=== PATIENT | male | born 1965 | race Hispanic/Latino ===

== ENCOUNTER 2023-03-09 15:30 | Inpatient (IN) | payer OTHER ==
[~2023-03-09] VITALS: Ht 167.6 cm; Wt 69.4 kg
[2023-03-09 16:56] LABS: APPEARANCE,URINE CLEAR (CLEAR); BILIRUBIN,URINE NEGATIVE (NEGATIVE); COLOR,URINE YELLOW (YELLOW); GLUCOSE, URINE (UA) NEGATIVE (NEGATIVE); KETONES,URINE NEGATIVE (NEGATIVE); LEUKOCYTE ESTERASE ,URINE NEGATIVE Leu/uL (NEGATIVE); NITRATE,URINE NEGATIVE (NEGATIVE); OCCULT BLOOD,URINE NEGATIVE (NEGATIVE); PH,URINE 5.5 (5.0-8.0); PROTEIN,URINE 30 mg/dL (NEGATIVE); UROBILINOGEN,URINE 0.2 mg/dL (0.2-1.0)
[2023-03-09 17:03] LABS: AMPHET/METH SCREEN,URINE NEGATIVE (NEGATIVE); BARBITURATE SCREEN, URINE NEGATIVE (NEGATIVE); BENZODIAZEPINES SCREEN,URINE NEGATIVE (NEGATIVE); CANNABINOID SCREEN,URINE POSITIVE (NEGATIVE); COCAINE SCREEN,URINE NEGATIVE (NEGATIVE); OPIATE SCREEN,URINE NEGATIVE (NEGATIVE); PHENCYCLIDINE SCREEN,URINE NEGATIVE (NEGATIVE)
[2023-03-09 17:28] LABS: BACTERIA,URINE RARE /HPF (None Seen); MUCUS,URINE FEW LPF (None Seen); SQUAMOUS EPITHELIAL CELL,UR RARE /HPF (0-2); WBC,URINE 0-1 /HPF (0-1)
[2023-03-09 17:53] LABS: BASOPHILS % (AUTO) 0.2 % (0.0-5.0); EOSINOPHILS % (AUTO) 0.6 % (0.0-8.0); HEMATOCRIT 49.2 % (42-54); LYMPHOCYTES % (AUTO) 12.2 % (21.0-51.0); MEAN CORPUSCULAR HEMOGLOBIN 29.8 pg (27.0-33.0); MEAN CORPUSCULAR HGB CONC 34.1 g/dL (32.0-36.0); MEAN CORPUSCULAR VOLUME 87.4 fL (79-99); MONOCYTES % (AUTO) 6.9 % (3.0-13.0); NEUTROPHILS % (AUTO) 79.6 % (40.0-77.0); PLATELET COUNT (AUTO) 309 K/uL (130-400); RED BLOOD CELL COUNT(AUTO) 5.63 MIL/uL (4.50-6.20); RED CELL DISTRIBUTION WIDTH 12.7 % (11.0-15.5); WHITE BLOOD COUNT (AUTO) 16.3 K/uL (4.8-10.8)
[2023-03-09 18:01] LABS: CREATININE 0.9 mg/dL (0.5-1.5); POTASSIUM 3.8 mmol/L (3.5-5.1)
[2023-03-09 18:06] LABS: TOTAL PROTEIN, SERUM 8.8 g/dL (6.0-8.3)
[2023-03-09] MEDS ORDERED: MORPHINE 2 MG SYG ONE (21:37)
[2023-03-09] MEDS ORDERED: MORPHINE 2 MG SYG IVP ONE (22:00)
[2023-03-09] MEDS ORDERED: ONDANSETRON 4MG INJ IVP ONE (22:00)
[2023-03-09] MEDS ORDERED: 0.9%NACL 1000ML 1,000 ML IV ONE (22:00)
[2023-03-09] MEDS ORDERED: MORPHINE 2 MG SYG IM ONE (23:30)
[2023-03-09] MEDS ORDERED: ZOSYN 3.375GM +NS 50ML IVPB ONE (23:30)
[2023-03-10] MEDS ORDERED: PANTOPRAZOLE 40 MG/VIAL IVP ONE
[2023-03-10] MEDS ORDERED: ACETAMINOPHEN 325 MG TAB PO PRN ×2 (02:00)
[2023-03-10] MEDS ORDERED: MORPHINE 2 MG SYG IV PRN (02:00)
[2023-03-10] MEDS ORDERED: MORPHINE 4 MG SYG IV PRN (02:00)
[2023-03-10] MEDS ORDERED: ONDANSETRON 4MG INJ IV PRN (02:00)
[2023-03-10] MEDS ORDERED: POTASSIUM CHLORIDE 20MEQ/100ML 100 ML IV PRN (02:30)
[2023-03-10] MEDS ORDERED: MAGNESIUM 2GM PREMIX 50ML 50 ML IV PRN (02:30)
[2023-03-10] MEDS: LACTATED RINGERS 1000ML 1,000 ML IV SCH ×3 (02:33→19:39)
[2023-03-10 03:30] VITALS: BP 158/86
[2023-03-10 05:01] LABS: BASOPHILS % (AUTO) 0.2 % (0.0-5.0); EOSINOPHILS % (AUTO) 1.4 % (0.0-8.0); HEMATOCRIT 44.3 % (42-54); LYMPHOCYTES % (AUTO) 17.6 % (21.0-51.0); MEAN CORPUSCULAR HEMOGLOBIN 29.4 pg (27.0-33.0); MEAN CORPUSCULAR HGB CONC 33.4 g/dL (32.0-36.0); MEAN CORPUSCULAR VOLUME 88.1 fL (79-99); MONOCYTES % (AUTO) 6.3 % (3.0-13.0); NEUTROPHILS % (AUTO) 73.9 % (40.0-77.0); PLATELET COUNT (AUTO) 261 K/uL (130-400); RED BLOOD CELL COUNT(AUTO) 5.03 MIL/uL (4.50-6.20); RED CELL DISTRIBUTION WIDTH 12.8 % (11.0-15.5); WHITE BLOOD COUNT (AUTO) 11.2 K/uL (4.8-10.8)
[2023-03-10 05:15] LABS: INR 0.93 (0.85-1.15); PROTHROMBIN TIME 10.5 SEC (9.6-11.6)
[2023-03-10 05:16] LABS: PARTIAL THROMBOPLASTIN TIME 27.6 SEC (26.3-35.5)
[2023-03-10 05:20] LABS: CREATININE 0.9 mg/dL (0.5-1.5); PHOSPHORUS 3.3 mg/dL (2.5-4.9); POTASSIUM 3.7 mmol/L (3.5-5.1)
[2023-03-10 08:03] VITALS: BP 134/89
[2023-03-10] MEDS: FAMOTIDINE 20MG VIAL IV SCH ×2 (09:16→19:39)
[2023-03-10] MEDS: ENOXAPARIN SODIUM 40 MG/0.4 ML SYRINGE SQ SCH (09:28)
[2023-03-10] MEDS ORDERED: PHARMACY COMMUNICATION MISC PRN (09:30)
[2023-03-10 09:46] LABS: HEMOGLOBIN A1C 5.6 % (4.0-6.0)
[2023-03-10 11:23] VITALS: BP 146/92
[2023-03-10 15:32] VITALS: BP 157/97
[2023-03-10 19:00] VITALS: BP 142/87
[2023-03-10 23:00] VITALS: BP 139/86
[2023-03-11 04:56] LABS: BASOPHILS % (AUTO) 0.3 % (0.0-5.0); EOSINOPHILS % (AUTO) 1.6 % (0.0-8.0); HEMATOCRIT 42.3 % (42-54); MEAN CORPUSCULAR HEMOGLOBIN 29.1 pg (27.0-33.0); MEAN CORPUSCULAR HGB CONC 33.1 g/dL (32.0-36.0); MEAN CORPUSCULAR VOLUME 87.9 fL (79-99); NEUTROPHILS % (AUTO) 66.2 % (40.0-77.0); PLATELET COUNT (AUTO) 244 K/uL (130-400); RED BLOOD CELL COUNT(AUTO) 4.81 MIL/uL (4.50-6.20); RED CELL DISTRIBUTION WIDTH 12.4 % (11.0-15.5); WHITE BLOOD COUNT (AUTO) 8.8 K/uL (4.8-10.8)
[2023-03-11 05:00] VITALS: BP 152/82
[2023-03-11 05:15] LABS: ALBUMIN 3.1 g/dL (3.5-5.0); BILIRUBIN,DIRECT 0.1 mg/dL (0.0-0.3); CREATININE 0.9 mg/dL (0.5-1.5); POTASSIUM 3.6 mmol/L (3.5-5.1); TOTAL PROTEIN, SERUM 6.7 g/dL (6.0-8.3)
[2023-03-11 08:00] VITALS: BP 159/85
[2023-03-11] MEDS: FAMOTIDINE 20MG VIAL IV SCH (10:05)
[2023-03-11] MEDS: ENOXAPARIN SODIUM 40 MG/0.4 ML SYRINGE SQ SCH (10:06)
[2023-03-11 11:34] VITALS: BP 128/76
[2023-03-11 15:56] VITALS: BP 155/76
== END 2023-03-11 15:50 | disposition home or self-care (01) | DRG 440 ==
LOC: EDH 15:30 → EDHIP 15:31 → 4CH 03-10 03:04
PROVIDERS: ADMIT Internal Medicine; ATTEND Internal Medicine
DX: K85.20 Alcohol induced acute pancreatitis without necrosis or infection (principal); F17.210 Nicotine dependence, cigarettes, uncomplicated; F12.90 Cannabis use, unspecified, uncomplicated; K21.9 Gastro-esophageal reflux disease without esophagitis; Z63.4 Disappearance and death of family member
CPT/HCPCS: 36415; 74176; 76705; 80048; 80053; 80061; 80076; 80305; 81001; 83036; 83605; 83690; 83735; 84100; 84145; 85025; 85610; 85730; 87040; C9113; G0378; J1650; J2270; J2405; J2543; J3490; J7120